=== PATIENT | female | born 1960 | race Caucasian/White ===

== ENCOUNTER 2017-06-10 06:26 | Inpatient (IN) | payer BC ==
[2017-05-12 08:19] VITALS: BMI 32.0
--- NOTE | 2017-05-12 09:10 | PAT Medication Instructions ---
Service Date May 12, 2017. Current Home Medication List Dermatological Products, Misc. (Kerasal Fungal Nail Renew), 1 DOSE TOP DAILY Famotidine (Pepcid), 20 MG PO DAILY PRN for Indigestion Ibuprofen (Advil), 400 MG PO QID PRN for Pain Lisinopril (Zestril), 10 MG PO QAM Prednisolone Acetate (Ophth) (Pred Forte 1% Oph), 1 DROPS OPR QAM Simvastatin (Zocor), 10 MG PO QPM Medication Instructions For Your Scheduled Surgery - Instructions per surgeon: Ibuprofen (Advil), 400 MG PO QID PRN for Pain - Hold the following medications 24 hours prior to surgery: Dermatological Products, Misc. (Kerasal Fungal Nail Renew), 1 DOSE TOP DAILY - Hold the following medications the morning of surgery: Lisinopril (Zestril), 10 MG PO QAM - Take the following medications the morning of surgery with a sip of water OTHERWISE NOTHING TO EAT OR DRINK AFTER MIDNIGHT: Famotidine (Pepcid), 20 MG PO DAILY PRN for Indigestion Prednisolone Acetate (Ophth) (Pred Forte 1% Oph), 1 DROPS OPR QAM - Take the following medications as scheduled the night before surgery: Simvastatin (Zocor), 10 MG PO QPM If you have any questions please call us at [phone] or [phone] or [phone]
[2017-05-12 09:33] LABS: BASO % 0.4 %; BASO ABS # 0.03 K/uL (0-0.2); COMPLETE YES; EOS % 3.1 %; HEMATOCRIT 41.8 % (37-47); IG% 0.4 %; LYMPH % 30.5 %; LYMPH ABS # 2.45 K/uL (1.2-3.4); MEAN CELL VOLUME 89.9 fL (80-100); MEAN CORPUSCULAR HEMOGLOBIN 29.5 pg (25-34); MEAN CORPUSCULAR HGB CONC 32.8 g/dl (32-36); MEAN PLATELET VOLUME 9.3 fL (7.4-10.4); MONO % 9.2 %; NEUT % 56.4 %; PLATELET COUNT 295 K/uL (130-400); RED BLOOD COUNT 4.65 M/uL (4.2-5.4); WHITE BLOOD COUNT 8.03 K/uL (4.8-10.8)
[2017-05-12 09:36] LABS: URINE APPEARANCE CLEAR (CLEAR); URINE BILIRUBIN NEG (NEG); URINE COLOR YELLOW; URINE EPITHELIAL CELL AUTO >30 /lpf (0-5); URINE NITRITE NEG (NEG); URINE PH 5.5 (4.5-7.5); URINE SPECIFIC GRAVITY 1.022 (1.000-1.030); UROBILINOGEN NEG (NEG); ZZUR CULT IF INDIC CLEAN CATCH NO
[2017-05-12 09:42] LABS: INR 0.9 (0.9-1.1); PARTIAL THROMBOPLASTIN RATIO 1.1; PROTHROMBIN TIME (PATIENT) 9.9 SECONDS (9.0-12.0)
[2017-05-12 09:51] LABS: MANUAL MICROSCOPIC REQUIRED? NO; REVIEW REQ? NO
[2017-05-12 09:54] LABS: ESTIMATED AVERAGE GLUCOSE 114 mg/dl; HA1C FLAG Normal (Normal)
[2017-05-12 11:10] LABS: CALCIUM 8.8 mg/dl (8.5-10.1); CREATININE 0.49 mg/dl (0.60-1.20); POTASSIUM 4.1 mmol/L (3.5-5.1)
--- NOTE | 2017-06-09 21:56 | HISTORY & PHYSICAL EXAMINATION ---
DATE OF ADMISSION: 06/10/2017 CHIEF COMPLAINT: Left knee pain. HISTORY OF PRESENT ILLNESS: This is a 57-year-old female patient of Dr. Meyer, complaining of chronic left knee pain, longstanding, now progressively getting worse. The patient has failed conservative treatment, including anti-inflammatories, intra-articular injections and the use of a brace as well as home exercise, physical therapy. The patient has increased pain with weightbearing activities and her pain does interfere with her activities of daily living. PAST MEDICAL HISTORY: Hypertension, hypercholesterolemia, syncope, not otherwise specified, and osteoarthritis. SOCIAL HISTORY: Nonsmoker, nondrinker. REVIEW OF SYSTEMS: The patient complains of chronic left knee pain; otherwise, denies any shortness of breath, chest pain, nausea, vomiting or joint complaints. FAMILY HISTORY: Noncontributory. PAST SURGICAL HISTORY: Will be provided on admission. MEDICATIONS: 1. Lisinopril 10 mg daily. 2. Simvastatin 10 mg daily. 3. Kerasal fungal nail renewal liquid, apply over the nail and surrounding skin as directed. 4. Prednisone 1% ophthalmic solution 1 drop in the left eye daily. 5. Pepcid 20 mg at bedtime. PHYSICAL EXAMINATION: GENERAL: A well-developed, well-nourished 57-year-old female, in no acute distress. She is alert and oriented x3 and pleasant. HEENT: Normocephalic, atraumatic. Extraocular motions are intact. Pupils are equal and reactive to light. HEART: Regular rate and rhythm, no murmurs appreciated. LUNGS: Clear. ABDOMEN: Soft and nontender; bowel sounds are present. EXTREMITIES: Left knee reveals crepitation with passive range of motion. She has joint line tenderness, limited range of motion. She has 4/5 strength with a mild effusion. NEUROLOGIC: Neurovascularly, she is intact in her left lower extremity. DIAGNOSES: Left knee end-stage osteoarthritis, hypertension, hypercholesterolemia. PLAN: The patient was advised of her diagnosis. Indications, risks, benefits, and postop course have all been reviewed. The patient wished to proceed with a left total knee arthroplasty. Necessary consent forms, preoperative testing and clearances will be obtained.
[~2017-06-10] VITALS: Ht 165.1 cm; Wt 87.7 kg
[2017-06-10] VITALS (9 sets, daily range): BP systolic 109–172; BP diastolic 69–95; PULSE 68–104; TEMP 36.3–36.8; O2SAT 93–100; Ht 165.1 cm; Wt 87.7 kg
[~2017-06-10 06:26] MED LIST: ACETAMINOPHEN 500 MG TAB PO SCH; CEFAZOLIN 2000 MG/60 ML D5W 60 ML IV SCH; CeleBREX 200 MG CAP PO SCH; DEXAMETHASONE 4 MG TAB PO SCH; FAMO20TA11 PO; FAMOTIDINE 20 MG TAB PO SCH; GABAPENTIN 300 MG CAP PO SCH; IBUP-1050 PO; LACTATED RINGER'S 1000ML 1,000 ML IV SCH; LACTATED RINGER'S 1000ML 500 ML IV ONE; LISI-461 PO; METOCLOPRAMIDE HCL 10 MG TAB PO SCH; PRED1SUS3 OPR; ROPIVACAINE 5MG/ML 30 ML 150 MG, BUPIVACAINE/EPINEPHR 0.5% MPF 30 ML, KETOROLAC TROMETH... INFIL SCH; SIMV10TA2 PO; [UNRECOGNIZED DRUG - CODE] TOP
[2017-06-10] MEDS ORDERED: BUPIVACAINE 0.5 % 5 MG/1 ML PF 10ML VIAL ONE (06:30)
[2017-06-10] MEDS: TRANEXAMIC ACID INJ 1,000 MG in SODIUM CHLORIDE 0.9% 100ML 100 ML IV SCH ×2 (06:30→09:03)
--- NOTE | 2017-06-10 07:26 | History & Physical Bridge Note ---
H&P Re-Evaluation Bridge Note: I have examined the patient, reviewed the History & Physical and in the interval since the performance of the History & Physical I have noted the following changes of clinical significance: No changes noted
[2017-06-10] MEDS ORDERED: FENTANYL CITRATE INJ 50 MCG/1 ML 2 ML VIAL ONE (08:07)
[2017-06-10] MEDS ORDERED: MIDAZOLAM HCL 1 MG/ML 2ML VIAL ONE ×2 (08:07→10:23)
[2017-06-10] MEDS ORDERED: BACITRACIN 50000 UNIT VIAL ONE (09:02)
[2017-06-10] MEDS ORDERED: ORTHO JOINT ANESTHETIC ONE (09:02)
[2017-06-10] MEDS ORDERED: POVIDONE-IODINE OP SOLN 30 ML BTL ONE (09:02)
[2017-06-10] MEDS ORDERED: FENTANYL CITRATE INJ 50 MCG/1 ML 2 ML VIAL IV PRN (09:15)
[2017-06-10] MEDS ORDERED: EpHEDrine SULFATE INJ 50 MG/ML AMP IV PRN (09:15)
[2017-06-10] MEDS ORDERED: ONDANSETRON INJ 2 MG/ML 2 ML VIAL IV PRN ×2 (09:15→11:45)
[2017-06-10] MEDS ORDERED: ATROPINE SULFATE 0.1 MG/ML 5ML SYR IV PRN (09:15)
[2017-06-10] MEDS ORDERED: PROPOFOL IV EMULSION 10 MG/ML 20 ML VIAL IV ONE ×2 (10:51)
[2017-06-10] MEDS ORDERED: ONDANSETRON INJ 2 MG/ML 2 ML VIAL ONE (10:51)
[2017-06-10] MEDS ORDERED: DEXAMETHASONE SOD INJ 4 MG/ML VIAL ONE (10:51)
--- NOTE | 2017-06-10 11:14 | [facility] Post Operative Brief Note ---
Immediate Operative Summary Operative Date Jun 10, 2017. Pre-Operative Diagnosis Left knee end stage osteoarthritis Post-Operative Diagnosis Left knee end stage osteoarthritis Procedure(s) Performed Left total knee arthroplasty Surgeon Dr. Packer Maintenance Electrician Surgeon(s) Ky Gay PA-C Estimated Blood Loss 5 cc Findings varus,grade 4 medial and patellofemoral and chronic acl tear Specimens A: Left knee bone and tissue Drains 2 hemovac Anesthesia spinal adductor block exparel Complication(s) None Disposition Recovery Room / PACU
[2017-06-10] MEDS ORDERED: MoRPHine SULFATE 2 MG/ML CARP IV PRN (11:45)
[2017-06-10] MEDS ORDERED: MAGNESIUM HYDROXIDE SUSP 30 ML UDC PO PRN (11:45)
[2017-06-10] MEDS ORDERED: BISACODYL 10 MG SUPP PR PRN (11:45)
[2017-06-10] MEDS ORDERED: ALUMINUM/MAGNESIUM/SIMETH (MAALOX MAX) 30 ML UDC PO PRN (11:45)
[2017-06-10] MEDS ORDERED: MoRPHine SULFATE 4 MG/ML 1 ML CARP\\VIAL IV PRN (11:45)
--- NOTE | 2017-06-10 12:09 | DIAGNOSTIC IMAGING REPORT ---
LEFT KNEE 1 OR 2 VIEWS ROUTINE CLINICAL HISTORY: 57 years-old Female presenting with degenerative disease of the left knee status post total knee arthroplasty. TECHNIQUE: Frontal and lateral views of the left knee were obtained. COMPARISON: None. FINDINGS: Total left knee arthroplasty with patellar resurfacing. Surgical drain and overlying skin kailash noted. Soft tissue emphysema. No acute fracture or malalignment. No hardware complication is apparent. Atherosclerosis. IMPRESSION: Expected postsurgical changes status post total left knee arthroplasty with patellar resurfacing. Electronically signed by: Roscoe Dietrich M.D. 06/10/2017 12:08 PM Dictated Date/Time: 06/10/2017 12:07 PM
--- NOTE | 2017-06-10 12:27 | Anesthesiology Progress Note ---
Anesthesia Post Op Note Date & Time Jun 10, 2017 at 12:27 Vital Signs Pain Intensity: 0 Vital Signs Past 12 Hours Date Time Temp Pulse Resp B/P (MAP) Pulse Ox O2 Delivery O2 Flow Rate FiO2 06/10/17 12:15 36.4 79 16 134/87 99 Nasal Cannula 2 06/10/17 12:05 77 16 120/84 99 Nasal Cannula 2 06/10/17 11:55 77 16 105/76 97 Mask 10 06/10/17 11:45 75 16 115/81 100 Mask 10 06/10/17 11:37 36.6 87 16 114/66 100 Mask 10 06/10/17 06:44 36.8 104 20 172/95 97 Room Air Notes Mental Status: alert / awake / arousable, participated in evaluation Pt Amnestic to Procedure: Yes Nausea / Vomiting: adequately controlled Pain: adequately controlled Airway Patency, RR, SpO2: stable & adequate BP & HR: stable & adequate Hydration State: stable & adequate Neuraxial Anesthesia: was administered, sensory block is resolving Anesthetic Complications: no major complications apparent
[2017-06-10] MEDS: ACETAMINOPHEN 500 MG TAB PO SCH ×2 (14:18→21:09)
[2017-06-10] MEDS: D5W AND 1/2NSS + 20MEQ KCL 1,000 ML IV SCH ×2 (14:18→23:51)
--- NOTE | 2017-06-10 15:14 | Medical Consult ---
Consultation Date of Consultation: Jun 10, 2017. Attending Physician: Meir Packer M.D. Reason for Consultation: Post-op medical management History of Present Illness This is a 57yo Female with a PMH of HTN, HLD and OA of multiple joints who is POD#0 s/p Left TKA with Dr. Packer. Patient has longstanding, chronic L knee pain that has failed conservative treatment. Is doing well post-operatively. Denies any pain in L knee. Denies any lightheadedness, CP, dyspnea, SOB, nausea/ vomiting, calf pain or weakness. Past Medical/Surgical History Medical Problems: (1) HLD (hyperlipidemia) Status: Chronic (2) HTN (hypertension) Status: Chronic (3) Osteoarthritis Status: Chronic Social History Smoking Status: Former Smoker Allergies Coded Allergies: Hylan G-F 20 (Verified Allergy, Unknown, SEVERE SWELLING OF EXTREMITY, ) Home Medications Reported Home Medications Medications Dose Route/Sig Max Daily Dose Days Date Category Advil (Ibuprofen) 200 Mg Tab 400 Mg PO QID PRN 05/12/17 Reported Pepcid (Famotidine) 20 Mg Tab 20 Mg PO DAILY PRN 05/12/17 Reported Pred Forte 1% Oph (Prednisolone Acetate (Ophth)) 1 % Elizabeth 1 Drops OPR QAM 05/12/17 Reported Kerasal Fungal Nail Renew (Dermatological Products, Misc.) 1 Liq Liq 1 Dose TOP DAILY 05/12/17 Reported Zocor (Simvastatin) 10 Mg Tab 10 Mg PO QPM 05/12/17 Reported Zestril (Lisinopril) 10 Mg Tab 10 Mg PO QAM 05/12/17 Reported Current Inpatient Medications Current Inpatient Medications Medications (Trade) Dose Ordered Sig/Juancarlos Route Start Time Stop Time Status Last Admin Dose Admin Cefazolin Sodium 60 ml @ 100 mls/hr PREOP IV 06/10/17 06:00 06/10/17 18:00 06/10/17 09:33 100 MLS/HR Acetaminophen (Tylenol Tab) 1,000 mg PREOP PO 06/10/17 06:00 06/10/17 18:00 06/10/17 07:22 1,000 MG Celecoxib (CeleBREX CAP) 200 mg PREOP PO 06/10/17 06:00 06/10/17 18:00 8/16/17 07:22 200 MG Dexamethasone (Decadron Tab) 8 mg PREOP PO 06/10/17 06:00 06/10/17 18:00 06/10/17 07:22 8 MG Famotidine (Pepcid Tab) 20 mg PREOP PO 06/10/17 06:00 06/10/17 18:00 06/10/17 07:22 20 MG Gabapentin (Neurontin Cap) 600 mg PREOP PO 06/10/17 06:00 06/10/17 18:00 06/10/17 07:21 600 MG Metoclopramide HCl (Reglan Tab) 10 mg PREOP PO 06/10/17 06:00 06/10/17 18:00 06/10/17 07:21 10 MG Tranexamic Acid 1000 mg/Sodium Chloride 110 ml @ 660 mls/hr TODAY@06,0630 IV 06/10/17 06:00 06/10/17 18:00 06/10/17 06:30 660 MLS/HR Lactated Ringer's 1,000 ml @ 60 mls/hr [id number] IV 06/10/17 06:00 06/10/17 22:39 Lactated Ringer's 1,000 ml @ 15 mls/hr Q24H IV 06/10/17 06:00 06/11/17 05:59 06/10/17 07:20 15 MLS/HR Lisinopril (Zestril Tab) 10 mg QAM PO 06/11/17 09:00 07/11/17 08:59 Prednisolone Acetate (Pred Forte 1% Oph Susp) 1 drops QAM OPR 06/11/17 09:00 07/11/17 08:59 Simvastatin (Zocor Tab) 10 mg QPM PO 06/10/17 21:00 07/10/17 20:59 Morphine Sulfate (MoRPHine SULFATE INJ) 2 mg Q4HWA PRN IV 06/10/17 11:45 06/24/17 11:44 Morphine Sulfate (MoRPHine SULFATE INJ) 4 mg Q4HWA PRN IV 06/10/17 11:45 06/24/17 11:44 Potassium Chloride/Dextrose/ Sod Cl 1,000 ml @ 100 mls/hr Q10H IV 06/10/17 14:00 06/11/17 13:59 06/10/17 14:18 100 MLS/HR Cefazolin Sodium 2000 mg/Dextrose 60 ml @ 100 mls/hr Q8H IV 06/10/17 18:00 06/11/17 02:35 Oxycodone HCl (Roxicodone Immediate Rel Tab) 1 TABLET FOR PAIN RATING... Q4H PRN PO 06/10/17 11:45 06/24/17 11:44 Oxycodone HCl (Oxycontin Tab) 10 mg Q12 PO 06/10/17 21:00 06/24/17 20:59 Acetaminophen (Tylenol Tab) 1,000 mg Q8 PO 06/10/17 14:00 07/10/17 13:59 06/10/17 14:18 1,000 MG Magnesium Hydroxide (Milk Of Magnesia Susp) 30 ml Q6H PRN PO 06/10/17 11:45 07/10/17 11:44 Bisacodyl (Dulcolax Supp) 10 mg DAILY PRN SC 06/10/17 11:45 07/10/17 11:44 Senna (Senokot Tab) 17.2 mg HS PO 06/10/17 21:00 07/10/17 20:59 Docusate Sodium (coLACE CAP) 100 mg BID PO 06/10/17 21:00 07/10/17 20:59 Al Hydrox/Mg Hydrox/Simethicone (Maalox Max Susp) 15 ml Q4H PRN PO 06/10/17 11:45 07/10/17 11:44 Multivitamins (Multivitamin Tab) 1 tab QAM PO 06/11/17 09:00 07/11/17 08:59 Ondansetron HCl (Zofran Inj) 4 mg Q6H PRN IV 06/10/17 11:45 07/10/17 11:44 Ferrous Gluconate (Ferrous Gluconate Tab) 324 mg TIDM PO 06/10/17 17:45 07/10/17 17:44 Pantoprazole Sodium (Protonix Tab) 40 mg QAM PO 06/11/17 09:00 07/11/17 08:59 Tramadol HCl (Ultram Tab) 1 tablet for pain rating... Q4H PRN PO 06/10/17 11:45 07/10/17 11:44 Aspirin (Ecotrin Tab) 81 mg BID PO 06/10/17 21:00 07/10/17 20:59 Review of Systems Ten systems reviewed and negative except as noted in the HPI. Physical Exam Date Time Temp Pulse Resp B/P (MAP) Pulse Ox O2 Delivery O2 Flow Rate FiO2 06/10/17 14:20 77 16 117/75 (89) 100 Nasal Cannula 2.0 06/10/17 13:25 81 16 114/73 (87) 99 Nasal Cannula 2.0 06/10/17 12:55 36.5 77 16 119/78 (92) 100 Nasal Cannula 2.0 06/10/17 12:25 36.5 71 16 109/74 (86) 98 Nasal Cannula 2.0 06/10/17 12:25 98 Nasal Cannula 2.0 06/10/17 12:25 Nasal Cannula 2.0 06/10/17 12:15 36.4 79 16 134/87 99 Nasal Cannula 2 06/10/17 12:05 77 16 120/84 99 Nasal Cannula 2 06/10/17 11:55 77 16 105/76 97 Mask 10 06/10/17 11:45 75 16 115/81 100 Mask 10 06/10/17 11:37 36.6 87 16 114/66 100 Mask 10 06/10/17 06:44 36.8 104 20 172/95 97 Room Air General Appearance: WD/WN, no apparent distress Head: normocephalic, atraumatic Eyes: normal inspection, sclerae normal ENT: hearing grossly normal Neck: supple, no adenopathy, thyroid normal, trachea midline Respiratory/Chest: chest non-tender, lungs clear, normal breath sounds, no respiratory distress, no accessory muscle use Cardiovascular: regular rate, rhythm, no murmur Abdomen/GI: normal bowel sounds, non tender, soft, no organomegaly Back: normal inspection Extremities/Musculoskelatal: normal inspection (L knee with dressing in place. Clean, dry, hemovac drain in place with minimal output. R LE with SCD in place.) , no calf tenderness, normal capillary refill, no pedal edema Neurologic/Psych: no motor/sensory deficits, alert, normal mood/affect, oriented x 3 Skin: normal color, warm/dry, no rash Assessment & Plan This is a 57yo Female with a PMH of HTN, HLD and OA of multiple joints who is POD#0 s/p Left TKA with Dr. Packer. POD#0 S/p Left Total Knee Replacement: -Performed by Dr. Packer -Pt is doing well post-operatively -Per ortho for pain control, wound care, anticoagulation and activities -Monitor H&H, continue incentive spirometry, PT/OT when appropriate HTN: -Patient normotensive post-operatively -Continue monitoring -Continue Lisinopril 10mg daily HLD: -Continue simvastatin 10mg daily H/o Syncope: -Per chart review -Discussed with patient, who stated that she feels "queasy" with medical discussion, the sight of blood, etc -Endorses near-syncopal events recently because of this, but no full syncope -Denies any previous episodes of orthostatic hypotension DVT Ppx: SCDs Code status: FULL Dispo: Per ortho Thank you for this consultation. We will follow the patient with you during their hospital stay. You can reach a member of the [facility] Hospitalist Team 18/05 via pager @ [phone]. ADDENDUM: Saw and examined the patient in room 316 Doing well, no problems/issues to note; no pain Eating, no nausea/vomiting, no fevers/chills Monitor labs, PT/OT weight bearing status as per ortho continue Lisinopril for blood pressure
[2017-06-10] MEDS: FERROUS GLUCONATE 324 MG TAB PO SCH (17:56)
[2017-06-10] MEDS: CEFAZOLIN IV 2,000 MG in DEXTROSE 5% 50ML 50 ML IV SCH (17:59)
[2017-06-10] MEDS: OXYCODONE HCL IR 5 MG TAB (IMMEDIATE RELEASE) PO PRN (18:36)
[2017-06-10] MEDS: OXYCODONE HCL 10 MG TABCR (OXYCONTIN) PO SCH (21:07)
[2017-06-10] MEDS: DOCUSATE SODIUM 100 MG CAP PO SCH (21:08)
[2017-06-10] MEDS: SENNA 8.6 MG TAB PO SCH (21:08)
[2017-06-10] MEDS: SIMVASTATIN 10 MG TAB PO SCH (21:08)
[2017-06-10] MEDS: ASPIRIN 81 MG ECTAB PO SCH (21:08)
[2017-06-11] VITALS (7 sets, daily range): BP systolic 98–136; BP diastolic 60–82; PULSE 68–75; TEMP 36.3–36.7; O2SAT 94–98
--- NOTE | 2017-06-11 00:17 | OPERATIVE REPORT ---
DATE OF OPERATION: 06/10/2017 INDICATION FOR PROCEDURE: A 57-year-old female who presents with chronic bilateral knee osteoarthritis. She has a varus knee, [id number] medial compartment, but has tricompartmental DJD. PREOPERATIVE DIAGNOSIS: End-stage osteoarthritis, left knee. POSTOPERATIVE DIAGNOSIS: Same. PROCEDURE: Left total knee arthroplasty. SURGEON: Dr. Packer. SENIOR PROJECT ACCOUNTANT: ALANIS Gonzales. ANESTHESIA: Spinal adductor nerve block and Orthomix. OPERATIVE PROCEDURE: The patient was taken to the operating room, anesthetized under anesthesia as dictated. She was placed supine on the operating room table. Pneumatic tourniquet was placed on left upper thigh. Left lower extremity was prepped and draped in sterile fashion. Exam demonstrated that she did not have any pseudolaxity, she had a varus knee. She had 0-125 degrees range of motion. Pneumatic tourniquet was placed about her moderately obese upper left thigh. The left lower extremity was prepped and draped in sterile fashion using ChloraPrep. The leg was elevated, exsanguinated with Esmarch bandage. Pneumatic tourniquet was raised to 300 mmHg. An anterior incision was made across the left knee. Skin was incised sharply. Subcutaneous flaps were elevated. Incision was made through medial retinaculum and extended up into the mid third of the quadriceps tendon, extending down to the medial tibial tubercle. Intraarticular findings demonstrate some tricompartmental DJD. She had tricompartmental osteophytes. Medial compartment bone on bone. She had a chronic ACL tear. She had notch osteophytes, closing the notch. She did have one area of grade 4 DJD in the trochlear patellofemoral joint and on the patella as well. The [employer] Journey 2.0 total knee arthroplasty system was used with [employer], [employer] MRI templating, templated for a 5 femur and 3 tibia. To expose the knee, the infrapatellar fat pad was excised. Lateral synovial bands were released. The fat pad over the anterior femur was resected. The meniscal remnants were resected. The posterior cruciate ligament was resected. The femur was exposed with retractors. The custom femoral cutting block was pinned in position. Distal femoral cut was made. Then we extended the knee and we were able to do a subperiosteal peel lateral release around the patella, measured the patella width. The width was reproduced using a freehand cut technique and a 32 mm patella component. The drill holes for the patella were made and the excess lateral facet was beveled off to prevent any impingement. Then the femur was re-exposed with retractors. The 5-in-1 cutting block for the Journey 2.0 knee was placed in position. The anterior, posterior and chamfer cuts were made. The tibia was subluxed and the custom tibial cutting block was pinned in position and the proximal tibial cut was made with the oscillating saw. Then we assessed ligamentous balance. We had to do some releases around the medial tibial plateau and pie-crust the MCL to balance the ligaments. At this time, the tibia was re-exposed and the 3 tibial baseplate trial was externally rotated in line with the tibial tubercle, pinned in position. The punch for the stem was used. Then the 5 femoral trial was inserted and centered and then the notch cutting devices were used and the collet was placed. A 12 poly insert gave balanced ligaments through full range of motion and patella had some slight liftoff laterally, so we went ahead and did a lateral release, leaving the synovium intact. Patella then tracked centrally completely. Trials were removed. The Orthomix anesthetic cocktail was injected per protocol. The knee was copiously irrigated with pulsatile lavage antibiotic solution with bacitracin. The final components were cemented the Simplex G cement. Final components were the 5 Oxinium Le[employer]hew Journey posterior stabilized left femoral component, the 3 primary tibia component, the 12 mm posterior stabilized poly high flex insert and then the 32 mm patella. While the cement was curing, we used the Betadine soak per protocol. Then we copiously irrigated the knee with pulsatile lavage antibiotic solution and bacitracin. Brought 2 drains out laterally. Closed the quadriceps tendon and medial retinaculum with [id number] #1 Vicryl sutures. The subcutaneous tissues closed with interrupted 2-0 Vicryl, skin was closed with kailash. Sterile dressings applied and the patient tolerated the procedure well. ALANIS Gonzales was my blood donor unit assistant, functioned as blood donor unit assistant for the entire procedure. He assisted in soft tissue retraction, instrument management and performed the fascial, subcutaneous and skin closure and will participate in the postoperative care of the patient. I attest to the content of the Intraoperative Record and any orders documented therein. Any exception s are noted below.
[2017-06-11] MEDS: CEFAZOLIN IV 2,000 MG in DEXTROSE 5% 50ML 50 ML IV SCH (01:39)
[2017-06-11] MEDS: ACETAMINOPHEN 500 MG TAB PO SCH ×3 (05:33→21:48)
[2017-06-11 06:03] LABS: HEMATOCRIT 37.1 % (37-47); MEAN CELL VOLUME 87.3 fL (80-100); MEAN CORPUSCULAR HEMOGLOBIN 28.9 pg (25-34); MEAN CORPUSCULAR HGB CONC 33.2 g/dl (32-36); MEAN PLATELET VOLUME 9.1 fL (7.4-10.4); PLATELET COUNT 294 K/uL (130-400); RED BLOOD COUNT 4.25 M/uL (4.2-5.4); WHITE BLOOD COUNT 19.58 K/uL (4.8-10.8)
[2017-06-11 06:39] LABS: CALCIUM 8.5 mg/dl (8.5-10.1); CREATININE 0.54 mg/dl (0.60-1.20); POTASSIUM 4.2 mmol/L (3.5-5.1)
[2017-06-11] MEDS: FERROUS GLUCONATE 324 MG TAB PO SCH ×3 (08:00→17:49)
[2017-06-11] MEDS: OXYCODONE HCL IR 5 MG TAB (IMMEDIATE RELEASE) PO PRN ×3 (08:00→19:45)
[2017-06-11] MEDS: MULTIVITAMIN TAB PO SCH (08:32)
[2017-06-11] MEDS: LISINOPRIL 10 MG TAB PO SCH (08:32)
[2017-06-11] MEDS: DOCUSATE SODIUM 100 MG CAP PO SCH ×2 (08:32→20:50)
[2017-06-11] MEDS: ASPIRIN 81 MG ECTAB PO SCH ×2 (08:32→20:50)
[2017-06-11] MEDS: PANTOprazole SOD 40 MG TAB PO SCH (08:32)
[2017-06-11] MEDS: PrednisoLONE ACET 1% OP SUSP 5 ML BTL OPR SCH (08:33)
[2017-06-11] MEDS: OXYCODONE HCL 10 MG TABCR (OXYCONTIN) PO SCH ×3 (08:34→23:27)
[2017-06-11] MEDS: D5W AND 1/2NSS + 20MEQ KCL 1,000 ML IV SCH (10:11)
--- NOTE | 2017-06-11 10:17 | Anesthesiology Progress Note ---
Anesthesia Post Op Note Date & Time Jun 11, 2017 at 10:16 Vital Signs Pain Intensity: 6.0 Vital Signs Past 12 Hours Date Time Temp Pulse Resp B/P (MAP) Pulse Ox O2 Delivery O2 Flow Rate FiO2 06/11/17 08:57 98 Room Air 06/11/17 07:58 36.3 70 18 120/62 (81) 98 Room Air 06/11/17 07:16 Room Air 06/11/17 04:22 36.7 71 16 98/60 (73) 97 Room Air 06/10/17 22:53 36.4 68 16 115/69 (84) 93 Room Air Notes Mental Status: alert / awake / arousable, participated in evaluation Pt Amnestic to Procedure: Yes Nausea / Vomiting: adequately controlled Pain: adequately controlled Airway Patency, RR, SpO2: stable & adequate BP & HR: stable & adequate Hydration State: stable & adequate Neuraxial Anesthesia: sensory block resolved Anesthetic Complications: no major complications apparent
--- NOTE | 2017-06-11 10:22 | Orthopedic Progress Note ---
Orthopedic Progress Note Date of Service Jun 11, 2017. Subjective Post OP Day: 1 Reports: feeling well, pain controlled w PO medications, Denies: complaints Objective calves soft nontender, N/V intact, dressing C/D/I, A&O x3, toes mobile, hemovac drainage (175ml latest shift) Date Time Temp Pulse Resp B/P (MAP) Pulse Ox O2 Delivery O2 Flow Rate FiO2 06/11/17 08:57 98 Room Air 06/11/17 07:58 36.3 70 18 120/62 (81) 98 Room Air 06/11/17 07:16 Room Air 06/11/17 04:22 36.7 71 16 98/60 (73) 97 Room Air 06/10/17 22:53 36.4 68 16 115/69 (84) 93 Room Air 06/10/17 19:30 Room Air 06/10/17 19:18 36.3 84 18 127/74 (91) 93 Room Air 06/10/17 17:40 94 Room Air 06/10/17 15:33 36.5 71 18 111/70 (84) 97 Nasal Cannula 3.0 06/10/17 14:20 77 16 117/75 (89) 100 Nasal Cannula 2.0 06/10/17 13:25 81 16 114/73 (87) 99 Nasal Cannula 2.0 06/10/17 12:55 36.5 77 16 119/78 (92) 100 Nasal Cannula 2.0 06/10/17 12:25 36.5 71 16 109/74 (86) 98 Nasal Cannula 2.0 06/10/17 12:25 98 Nasal Cannula 2.0 06/10/17 12:25 Nasal Cannula 2.0 06/10/17 12:15 36.4 79 16 134/87 99 Nasal Cannula 2 06/10/17 12:05 77 16 120/84 99 Nasal Cannula 2 06/10/17 11:55 77 16 105/76 97 Mask 10 06/10/17 11:45 75 16 115/81 100 Mask 10 06/10/17 11:37 36.6 87 16 114/66 100 Mask 10 Laboratory Results 24 Hours: Test 06/11/17 05:23 Hematocrit 37.1 % Hemoglobin 12.3 g/dL Assessment & Plan Assessment: POD 1 s/p Left TKA Plan: PT/OT Planning for OPPT Inhouse Planning Pain Management: Oxycontin, Ultram, Morphine, PO Tylenol, Oxy IR DVT Prophylaxis: TEDs, SCDs, ASA Discharge Planning Discharge Planning: home with oppt Pain Management: Oxycontin, PO Tylenol, Oxy IR DVT Prophylaxis: TEDs, ASA Therapy: Physical Therapy
--- NOTE | 2017-06-11 12:37 | Progress Note ---
Subjective Date of Service: Jun 11, 2017. Subjective Pt evaluation today including: conversation w/ patient, physical exam, lab review, review of studies, review of inpatient medication list Saw/examined the patient in room 316 No problems/issues to note Pain controlled Good PO intake no BM as of yet Review of Systems Constitutional: No fever, No chills Respiratory: No cough, No sputum, No shortness of breath Cardiac: No chest pain Abdomen: No pain, No nausea, No vomiting, No diarrhea Musculoskeletal: + joint pain (controlled with medications) Medications Current Inpatient Medications Medications (Trade) Dose Ordered Sig/Juancarlos Route Start Time Stop Time Status Last Admin Dose Admin Lisinopril (Zestril Tab) 10 mg QAM PO 06/11/17 09:00 07/11/17 08:59 06/11/17 08:32 10 MG Prednisolone Acetate (Pred Forte 1% Oph Susp) 1 drops QAM OPR 06/11/17 09:00 07/11/17 08:59 06/11/17 08:33 1 DROPS Simvastatin (Zocor Tab) 10 mg QPM PO 06/10/17 21:00 07/10/17 20:59 06/10/17 21:08 10 MG Morphine Sulfate (MoRPHine SULFATE INJ) 2 mg Q4HWA PRN IV 06/10/17 11:45 06/24/17 11:44 Morphine Sulfate (MoRPHine SULFATE INJ) 4 mg Q4HWA PRN IV 06/10/17 11:45 06/24/17 11:44 Potassium Chloride/Dextrose/ Sod Cl 1,000 ml @ 100 mls/hr Q10H IV 06/10/17 14:00 06/11/17 13:59 06/11/17 10:11 100 MLS/HR Oxycodone HCl (Roxicodone Immediate Rel Tab) 1 TABLET FOR PAIN RATING... Q4H PRN PO 06/10/17 11:45 06/24/17 11:44 06/11/17 08:00 5 MG Oxycodone HCl (Oxycontin Tab) 10 mg Q12 PO 06/10/17 21:00 06/24/17 20:59 06/11/17 08:34 10 MG Acetaminophen (Tylenol Tab) 1,000 mg Q8 PO 06/10/17 14:00 07/10/17 13:59 06/11/17 05:33 1,000 MG Magnesium Hydroxide (Milk Of Magnesia Susp) 30 ml Q6H PRN PO 06/10/17 11:45 07/10/17 11:44 Bisacodyl (Dulcolax Supp) 10 mg DAILY PRN ME 06/10/17 11:45 07/10/17 11:44 Senna (Senokot Tab) 17.2 mg HS PO 06/10/17 21:00 07/10/17 20:59 06/10/17 21:08 17.2 MG Docusate Sodium (coLACE CAP) 100 mg BID PO 06/10/17 21:00 07/10/17 20:59 06/11/17 08:32 100 MG Al Hydrox/Mg Hydrox/Simethicone (Maalox Max Susp) 15 ml Q4H PRN PO 06/10/17 11:45 07/10/17 11:44 Multivitamins (Multivitamin Tab) 1 tab QAM PO 06/11/17 09:00 07/11/17 08:59 06/11/17 08:32 1 TAB Ondansetron HCl (Zofran Inj) 4 mg Q6H PRN IV 06/10/17 11:45 07/10/17 11:44 Ferrous Gluconate (Ferrous Gluconate Tab) 324 mg TIDM PO 06/10/17 17:45 07/10/17 17:44 06/11/17 12:12 324 MG Pantoprazole Sodium (Protonix Tab) 40 mg QAM PO 06/11/17 09:00 07/11/17 08:59 06/11/17 08:32 40 MG Tramadol HCl (Ultram Tab) 1 tablet for pain rating... Q4H PRN PO 06/10/17 11:45 07/10/17 11:44 Aspirin (Ecotrin Tab) 81 mg BID PO 06/10/17 21:00 07/10/17 20:59 06/11/17 08:32 81 MG Objective Vital Signs Date Time Temp Pulse Resp B/P (MAP) Pulse Ox O2 Delivery O2 Flow Rate FiO2 06/11/17 11:34 36.3 70 18 136/82 (100) 98 Room Air 06/11/17 08:57 98 Room Air 06/11/17 07:58 36.3 70 18 120/62 (81) 98 Room Air 06/11/17 07:16 Room Air 06/11/17 04:22 36.7 71 16 98/60 (73) 97 Room Air 06/10/17 22:53 36.4 68 16 115/69 (84) 93 Room Air 06/10/17 19:30 Room Air 06/10/17 19:18 36.3 84 18 127/74 (91) 93 Room Air 06/10/17 17:40 94 Room Air 06/10/17 15:33 36.5 71 18 111/70 (84) 97 Nasal Cannula 3.0 06/10/17 14:20 77 16 117/75 (89) 100 Nasal Cannula 2.0 06/10/17 13:25 81 16 114/73 (87) 99 Nasal Cannula 2.0 06/10/17 12:55 36.5 77 16 119/78 (92) 100 Nasal Cannula 2.0 Physical Exam General Appearance: no apparent distress Respiratory/Chest: lungs clear, normal breath sounds, no respiratory distress, no accessory muscle use Cardiovascular: regular rate, rhythm, no edema, no murmur Extremities: + pertinent finding (wound vac in place) Laboratory Results Last 24 Hours Test 06/11/17 05:23 White Blood Count 19.58 K/uL Red Blood Count 4.25 M/uL Hemoglobin 12.3 g/dL Hematocrit 37.1 % Mean Corpuscular Volume 87.3 fL Mean Corpuscular Hemoglobin 28.9 pg Mean Corpuscular Hemoglobin Concent 33.2 g/dl RDW Standard Deviation 45.0 fL RDW Coefficient of Variation 14.0 % Platelet Count 294 K/uL Mean Platelet Volume 9.1 fL Sodium Level 141 mmol/L Potassium Level 4.2 mmol/L Chloride Level 110 mmol/L Carbon Dioxide Level 27 mmol/L Anion Gap 4.0 mmol/L Blood Urea Nitrogen 11 mg/dl Creatinine 0.54 mg/dl Est Creatinine Clear Calc Drug Dose 124.2 ml/min Estimated GFR () 120.6 Estimated GFR (Non- 104.0 BUN/Creatinine Ratio 20.0 Random Glucose 137 mg/dl Calcium Level 8.5 mg/dl Assessment and Plan This is a 57yo Female with a PMH of HTN, HLD and OA of multiple joints who is POD#0 s/p Left TKA with Dr. Packer. POD#0 S/p Left Total Knee Replacement: 06/11 doing well, pain controlled continue current regimen monitor labs expected leukocytosis - perioperative steroid use -Performed by Dr. Packer -Pt is doing well post-operatively -Per ortho for pain control, wound care, anticoagulation and activities -Monitor H&H, continue incentive spirometry, PT/OT when appropriate HTN: - controlled -Patient normotensive post-operatively -Continue monitoring -Continue Lisinopril 10mg daily HLD: -Continue simvastatin 10mg daily H/o Syncope: -Per chart review -Discussed with patient, who stated that she feels "queasy" with medical discussion, the sight of blood, etc -Endorses near-syncopal events recently because of this, but no full syncope -Denies any previous episodes of orthostatic hypotension DVT Ppx: SCDs Code status: FULL Dispo: Per ortho Thank you for this consultation. We will follow the patient with you during their hospital stay. You can reach a member of the [facility]05 via pager @ .
[2017-06-11] MEDS: TRAMADOL HCL 50 MG TAB PO PRN (20:27)
[2017-06-11] MEDS: SIMVASTATIN 10 MG TAB PO SCH (20:50)
[2017-06-11] MEDS: SENNA 8.6 MG TAB PO SCH (20:51)
[2017-06-12] MEDS: ACETAMINOPHEN 500 MG TAB PO SCH ×2 (05:48→14:01)
[2017-06-12] MEDS: TRAMADOL HCL 50 MG TAB PO PRN ×2 (05:48→14:01)
[2017-06-12 05:50] LABS: HEMATOCRIT 33.8 % (37-47); MEAN CELL VOLUME 88.7 fL (80-100); MEAN CORPUSCULAR HEMOGLOBIN 29.1 pg (25-34); MEAN CORPUSCULAR HGB CONC 32.8 g/dl (32-36); MEAN PLATELET VOLUME 8.9 fL (7.4-10.4); PLATELET COUNT 274 K/uL (130-400); RED BLOOD COUNT 3.81 M/uL (4.2-5.4); WHITE BLOOD COUNT 12.18 K/uL (4.8-10.8)
[2017-06-12 06:20] LABS: BUN/CREATININE RATIO 22.7 (10-20); CREATININE 0.51 mg/dl (0.60-1.20); POTASSIUM 4.3 mmol/L (3.5-5.1)
[2017-06-12 07:12] VITALS: BP 122/77; PULSE 71; TEMP 36.5; O2SAT 96
[2017-06-12] MEDS: OXYCODONE HCL IR 5 MG TAB (IMMEDIATE RELEASE) PO PRN (07:15)
[2017-06-12] MEDS ORDERED: SNK PO (07:35)
[2017-06-12] MEDS ORDERED: RXC5 PO (07:35)
[2017-06-12] MEDS ORDERED: ASPEC81 PO (07:35)
[2017-06-12] MEDS ORDERED: OXYSR10 PO (07:35)
[2017-06-12] MEDS: MULTIVITAMIN TAB PO SCH (08:37)
[2017-06-12] MEDS: DOCUSATE SODIUM 100 MG CAP PO SCH (08:37)
[2017-06-12] MEDS: PANTOprazole SOD 40 MG TAB PO SCH (08:37)
[2017-06-12] MEDS: FERROUS GLUCONATE 324 MG TAB PO SCH ×2 (08:37→12:47)
[2017-06-12] MEDS: LISINOPRIL 10 MG TAB PO SCH (08:37)
[2017-06-12] MEDS: ASPIRIN 81 MG ECTAB PO SCH (08:37)
[2017-06-12] MEDS: PrednisoLONE ACET 1% OP SUSP 5 ML BTL OPR SCH (08:38)
[2017-06-12] MEDS: OXYCODONE HCL 10 MG TABCR (OXYCONTIN) PO SCH (08:40)
--- NOTE | 2017-06-12 08:52 | Orthopedic Progress Note ---
Orthopedic Progress Note Date of Service Jun 12, 2017. Subjective Post OP Day: 2 Reports: feeling well, Denies: complaints Objective calves soft nontender, N/V intact, A&O x3, toes mobile Silverlon dressing window with moderate saturation but not leaking out of bandage. Date Time Temp Pulse Resp B/P (MAP) Pulse Ox O2 Delivery O2 Flow Rate FiO2 06/12/17 07:30 Room Air 06/12/17 07:12 36.5 71 19 122/77 (92) 96 Room Air 06/11/17 23:30 Room Air 06/11/17 23:15 36.3 68 16 108/71 (83) 96 Room Air 06/11/17 21:00 Room Air 06/11/17 15:49 36.4 75 17 115/70 (85) 94 Room Air 06/11/17 11:34 36.3 70 18 136/82 (100) 98 Room Air 06/11/17 08:57 98 Room Air Laboratory Results 24 Hours: Test 06/12/17 05:24 Hematocrit 33.8 % Hemoglobin 11.1 g/dL Assessment & Plan Assessment: POD 2 s/p Left TKA Pt seen by Dr Packer this AM Plan: PT/OT Planning for OPPT DC to home today Inhouse Planning Pain Management: Oxycontin, Ultram, Morphine, PO Tylenol, Oxy IR DVT Prophylaxis: TEDs, SCDs, ASA Discharge Planning Discharge Planning: home with oppt Pain Management: Oxycontin, PO Tylenol, Oxy IR DVT Prophylaxis: TEDs, ASA Therapy: Physical Therapy
--- NOTE | 2017-06-12 08:57 | Discharge Instructions ---
Discharge Instructions Date of Service Jun 12, 2017. Admission Reason for Admission: Left Knee Degenerative Joint Disease Discharge Discharge Diagnosis / Problem: Left KNee Djd Discharge Goals Goal(s): Decrease discomfort, Improve function, Increase independence Activity Recommendations Activity Limitations: per Instructions/Follow-up section Weightbearing Status: Left weightbearing (as tolerated) . Instructions / Follow-Up Instructions / Follow-Up ACTIVITY RECOMMENDATIONS: SELF CARE INSTRUCTIONS AFTER TOTAL KNEE REPLACEMENT A. You may need to continue a physical therapy program after discharge from the hospital. There are several options available to you. Your doctor will assist you in selecting the best one for you. 1. An out-patient facility 2 to 3 times a week for therapy or home therapy. 2. Continue working on all exercises taught to you in the hospital. Your goals should be to increase bending of your knee to 90 degrees and beyond and to fully straighten your knee. B. You may progress at your own pace from walking with a walker or crutches to a cane; then to no assistive devices. C. Make walking a part of your daily routine. Be up as much as comfortable with rest periods throughout the day. Rest with leg elevation is very important. Use the ice wrap frequently for the first 3-4 weeks. D. There are no restrictions on activities. You may ride in a car, shop, participate in commercial insurance underwriter and all social activities. E. Wear the long elastic stockings (MAISHA hose) 20 hours a day for 2 weeks after surgery. They can be removed several times a day for laundering and for a bath. F. You may shower, no tub baths until cleared by your doctor. SPECIAL CARE INSTRUCTIONS: VERY IMPORTANT TO READ AND REVIEW A. There are a few signs you need to watch for after you are home. Call [facility] if you notice any of the followin. Increased severe knee pain. Some pain is expected especially when you exercise. 2. Increased swelling in your leg or knee; pain or swelling of the calf muscle in either lower leg. 3. Any fluid drainage from the incision. 4. Shortness of breath or chest pain. B. Please call [facility] at if you have any concerns or questions about your operation or recovery. The doctor or his nurse will return your call promptly. C. You must take antibiotics before dental work, bladder, bowel or other surgery. Your doctor will provide you with a permanent care to carry describing this precaution. IMPORTANT: * REMEMBER TO TAKE ASPIRIN, 81 MG, TWICE DAILY FOR 4 WEEKS UNLESS OTHERWISE DIRECTED. THIS IS YOUR BLOOD THINNER. * HIGH RISK PATIENTS MAY BE PRESCRIBED A STRONGER BLOOD THINNER. THIS WILL BE PROVIDED AT DISCHARGE. * CALL IF INCREASED PAIN, REDNESS, DRAINAGE OR FEVER GREATER THAT 101. * WEAR MAISHA HOSE 20 HOURS PER DAY FOR 2 WEEKS. * Silverlon- This is a large adhesive bandage that contains silver ions. This helps your incision heal by fighting off bacteria and protecting it from the outside environment. You are permitted to shower with this dressing. This will remain on your incision for 7 days and then should be removed. Some visible blood or drainage through the dressing window is normal. If there is significant drainage or leaking noted before the 7 days notify your doctor's office immediately. Once removed, keep incision clean and dry. If there is any drainage or redness noted, please call your surgeon. . FOLLOW UP VISIT: If appointment is not already scheduled: Please call [facility] to make a follow-up appointment for 2 weeks after your surgery at . Current Hospital Diet Patient's current hospital diet: Regular Diet Discharge Diet Recommended Diet: Regular Diet Procedures Procedures Performed: Left total knee arthroplasty Pending Studies Studies pending at discharge: no Laboratory Results Hemoglobin A1c Test 05/12/17 08:50 Range/Units Estimated Average Glucose 114 mg/dl Hemoglobin A1c 5.6 4.5-5.6 % Medical Emergencies . Who to Call and When: Medical Emergencies: If at any time you feel your situation is an emergency, please call 911 immediately. . Non-Emergent Contact Non-Emergency issues call your: Surgeon Call Non-Emergent contact if: temperature is above 101.5, your pain is not controlled, your pain is worsening, wound has increased drainage, wound has increased redness . "Provider Documentation" section prepared by Ky Gay. . VTE Core Measure Inpt VTE Proph given/why not?: Other Anticoagulation, T.E.D. Stockings, SCD's [place] Drug Monitoring Program Search Results: patient reviewed within database, no issues identified
[2017-06-12 10:34] VITALS: BP 122/77; PULSE 71; TEMP 36.5; O2SAT 96
--- NOTE | 2017-06-12 11:13 | DISCHARGE SUMMARY ---
DATE OF DISCHARGE: 06/12/2017 DISCHARGE DIAGNOSIS: Degenerative joint disease left knee. SECONDARY DIAGNOSES: Hypertension, hypercholesterolemia, syncope, osteoarthritis. CONSULTS: Ashely Hidalgo PA-C/Dr. Saurav D.O. COMPLICATIONS: None. PROCEDURES: Left total knee arthroplasty performed by Dr. Packer on 06/10/2017. BRIEF HISTORY: As dictated in the history and physical. HOSPITAL SUMMARY: The patient admitted on the above date and had the above-noted surgery performed which she tolerated well. The first postoperative day, she was feeling well and pain was controlled. Calves were soft, nontender, neurovascularly intact. Dressings clean, dry and intact. Toes were mobile. Vital signs were stable. She is afebrile. Hemoglobin was 12.3 and she was started on physical therapy protocol and continued on DVT prophylaxis and pain management. By her second postoperative day, vital signs were stable. She was afebrile. Hemoglobin was 11.1. It was noted that her Silverlon dressing was slightly saturated and plans were for changing prior to discharge. She was progressing well otherwise and was remaining stable and it was felt she could be discharged to home on 06/12/2017 for plans with outpatient PT. For further review, please see chart. LAB AND X-RAY DATA: As per chart. DISCHARGE INSTRUCTIONS: The patient was discharged to home in satisfactory condition on 06/12/2017 with outpatient PT. DIET: Regular. ACTIVITY: Weightbearing as tolerated left lower extremity. Follow TK instruction sheets and special care instructions as noted. Follow up Dr. Packer in 2 weeks. The patient to call for appointment if one has not been made for you. DISCHARGE MEDICATIONS: Aspirin 81 mg p.o. b.i.d., OxyContin 10 mg p.o. q. 12 hours, oxycodone 5-10 mg p.o. q. 4 hours p.r.n., senna 17.2 mg p.o. at bedtime. Resume home meds as listed and stop taking ibuprofen.
== END 2017-06-12 16:59 | disposition home or self-care (01) | DRG 470 ==
LOC: C.ACU 06:26 → C.3E 07:00 → ENRESERV 12:07
PROVIDERS: ADMIT Orthopaedic Surgery Sports Medicine; ATTEND Orthopaedic Surgery Sports Medicine
PROC: 0SRD0J9 Replacement of Left Knee Joint with Synthetic Substitute, Cemented, Open Approach (ICD-10-PCS; principal; 2017-06-10 10:25)
DX: M17.12 Unilateral primary osteoarthritis, left knee (principal); I10 Essential (primary) hypertension; E78.5 Hyperlipidemia, unspecified; Z87.891 Personal history of nicotine dependence

== ENCOUNTER 2019-05-18 05:04 | Observation (INO) ==
--- NOTE | 2019-03-22 09:57 | Anesthesiology Consultation ---
Date of Service March 22, 2019 Assessment & Plan (1) Encounter for pre-operative examination: Chart Review Chart Review: Acceptable Risk for Surgery and Patient seen in Pre Admission Testing Teaching & Discussion Pre-Anesthesia Teaching/Discussion Notes: Instructed NPO after midnight before surgery,except medications with 15 cc of water. Medication instructions provided according to the PAT guidelines. History Surgery Operation Date: 05/18/19 07:00 Proposed Procedures p Right Total Knee Arthroplasty - Meir Packer MD Height/Weight Height: 5 ft 5 in Weight: 93.8 kg Allergies Allergy/AdvReac Type Severity Reaction Status Date / Time hylan G-F 20 Allergy Unknown SEVERE Verified 03/18/19 11:37 SWELLING Medications Home Medications Medication Instructions Recorded Confirmed Last Taken famotidine-Ca carb-mag hydrox 1 tab PO DAILY PRN 03/18/19 03/18/19 Unknown [Pepcid Complete] ibuprofen [Advil] 800 mg PO UD PRN 03/18/19 03/18/19 Unknown lisinopril 10 mg PO QAM 03/18/19 03/18/19 03/18/19 menthol [Ricola] 1.1 mg PO UD PRN 03/18/19 03/18/19 Unknown prednisolone acetate 1 drp OPHTHALMIC (EYE) DAILY 03/18/19 03/18/19 Unknown simvastatin 10 mg PO HS 03/18/19 03/18/19 03/17/19 Past Medical History Medical History Acid reflux OCCASIONAL Diverticulitis HX; 2011 Hyperlipidemia Hypertension IBS (irritable bowel syndrome) Obesity Exercise / Class Metabolic Activity II 4-5 Yardwork/Stairs/Walk up hill Past Surgical History Surgical History History of bilateral cataract extraction History of colonoscopy History of cornea transplant LEFT History of thoracentesis 2011= "FLUID DRAINED" FROM LUNG IN SETTING OF HOSPITALIZATION FOR DI VERTICULITIS/? IV REACTION= NO ISSUES SINCE History of total left knee replacement Past Anesthesia History No Hx of Anesthesia Complications and No Family Hx of Anesthesia Complications History of PONV No Hx of PONV and Hx of Motion Sickness (SINGLE EPISODE) Social History Smoking Status: Former smoker tobacco type: cigarettes Do You Dip or Chew Tobacco: No Smoking End Date: QUIT 1996 Hx Alcohol Use: Yes Alcohol type: hard liquor alcohol intake frequency: 0-2 drinks per day (2 SHOTS VODKA DRINK DAILY) Hx Substance Use: No substance use type: does not use Review of Systems Patient denies chest pain, shortness of breath, dyspnea on exertion, cough, wheezing, palpitations. Physical Exam Vital Signs VITALS BP 115/74 P 62 TEMP 97.7 SP02 97%RA RESP 20 PHYSICAL Full neck and c-spine range of motion. Full TMJ range of motion. TMD 2.5 finger breaths Mallampati Score 3 Dentition: intact, caps on sides Lungs: clear throughout to auscultation Cardiac: regular rate and rhythm, no murmurs noted Spine: normal Carotid arteries: negative bruit Extremities: no edema Testing Laboratory Results 03/22/19 10:19 03/22/19 10:19 03/22/19 03/22/19 03/22/19 10:19 10:19 10:19 PT 9.5 INR 0.9 APTT 24.9 Hemoglobin A1c 5.9 H Urine Color Urine Appearance Urine pH Ur Specific [place] Urine Protein Urine Glucose (UA) Urine Ketones Urine Nitrite Ur Leukocyte Esterase Blood Type A Positive Antibody Screen NEGATIVE 03/22/19 Unknown PT INR APTT Hemoglobin A1c Urine Color Yellow Urine Appearance Clear Urine pH 5.5 Ur Specific [place] 1.020 Urine Protein Negative Urine Glucose (UA) Negative Urine Ketones Negative Urine Nitrite Negative Ur Leukocyte Esterase Negative Blood Type Antibody Screen Electrocardiogram Date: 03/22/19 Findings: + SB @ (58) Chest X-Ray Date: 03/22/19 Findings: + NAD
--- NOTE | 2019-03-22 10:15 | PAT Medication Instructions ---
Medication Instructions Date of Service March 22, 2019 Home Medications famotidine-Ca carb-mag hydrox 1 tab PO DAILY PRN ibuprofen [Advil] 800 mg PO UD PRN lisinopril 10 mg PO QAM menthol [Ricola] 1.1 mg PO UD PRN prednisolone acetate 1 drp OPHTHALMIC (EYE) DAILY simvastatin 10 mg PO HS ASK your surgeon for instructions ibuprofen [Advil] 800 mg PO UD PRN DO NOT take the morning of surgery famotidine-Ca carb-mag hydrox 1 tab PO DAILY PRN lisinopril 10 mg PO QAM menthol [Ricola] 1.1 mg PO UD PRN Take morning of surgery With a small sip of water, OTHERWISE NOTHING TO EAT OR DRINK AFTER MIDNIGHT: prednisolone acetate 1 drp OPHTHALMIC (EYE) DAILY Take evening before surgery simvastatin 10 mg PO HS Other Notes If you have any questions please call us at [phone] or [phone] or [phone] or [phone]
--- NOTE | 2019-03-22 10:48 | XRay Report ---
XR chest Pre-admission PA/Lat CLINICAL HISTORY: Preoperative chest COMPARISON STUDY: No previous studies for comparison. FINDINGS: The cardiac and mediastinal contours are normal. There is no evidence of focal pulmonary co nsolidation. There is no evidence of failure. No pleural effusions are visualized.[ IMPRESSION: No active disease in the chest. Electronically signed by: Sixto Scott M.D. 03/22/2019 10:47 AM
[2019-03-22 11:45] LABS: Basophils # (auto) 0.02 K/uL (0-0.2); Basophils % (auto) 0.2 %; Eosinophils # (auto) 0.29 K/uL (0-0.5); Eosinophils % (auto) 3.1 %; Hematocrit (blood only) 42.2 % (37-47); Hemoglobin 14.2 g/dL (12.0-16.0); Immature Granulocytes # (auto) 0.04 K/uL (0.00-0.02); Immature Granulocytes % (auto) 0.4 %; Lymphocytes # (auto) 2.64 K/uL (1.2-3.4); Lymphocytes % (auto) 28.2 %; Mean Corpuscular Hgb Conc 33.6 g/dL (32-36); Mean Platelet Volume 10.1 fL (7.4-10.4); Monocytes # (auto) 0.73 K/uL (0.11-0.59); Monocytes % (auto) 7.8 %; Neutrophils # (auto) 5.64 K/uL (1.4-6.5); Neutrophils % (auto) 60.3 %; Platelet Count 302 K/uL (130-400); RDW Coefficient of Variation 15.5 % (11.5-14.5); RDW Standard Deviation 50.1 fL (36.4-46.3); Red Blood Count 4.85 M/uL (4.2-5.4); White Blood Count 9.36 K/uL (4.8-10.8)
[2019-03-22 11:51] LABS: Appearance Urine Clear (Clear); Bilirubin Urine Negative (Negative); Blood Urine Negative (Negative); Color Urine Yellow; Glucose Urine UA Negative (Negative); Ketones Urine Negative (Negative); Leukocyte Esterase Urine Negative (Negative); Nitrite Urine Negative (Negative); Protein Urine Negative (Negative); Urobilinogen Urine Negative (Negative); pH Urine 5.5 (4.5-7.5)
[2019-03-22 11:53] LABS: Albumin Level 3.4 gm/dl (3.4-5.0); BUN Creatinine Ratio 34.4 (10-20); Calcium 9.5 mg/dl (8.5-10.1); Creatinine Clr Calc Pharmacy 116.8 ml/min; Est GFR (African American) 116.1; Est GFR (Non-African American) 100.2; Potassium 4.2 mmol/L (3.5-5.1)
[2019-03-22 12:07] LABS: INR 0.9 (0.9-1.1); Partial Thromboplastin Ratio 0.9; Partial Thromboplastin Time 24.9 Seconds (21.0-31.0); Prothrombin Time 9.5 Seconds (9.0-12.0)
[2019-03-22 12:18] LABS: Estimated Average Glucose 123 mg/dl; Hemoglobin A1C 5.9 % (4.5-5.6)
--- NOTE | 2019-05-17 19:10 | History and Physical Report ---
DATE OF ADMISSION: 05/18/2019 CHIEF COMPLAINT: Chronic right knee pain and instability. HISTORY OF PRESENT ILLNESS: This is a 59-year-old female patient of Dr. Packer'rommel complaining of chronic right knee pain and instability, longstanding, now progressively getting worse. The patient has failed conservative treatment including intra-articular injections, anti-inflammatories, home exercise program and the use of a cane. The patient has increased pain with weightbearing activities and her pain does interfere with her activities of daily living. The patient has been diagnosed with end-stage osteoarthritis per clinical and radiographic exams and the patient wished to proceed with a right total knee arthroplasty. PAST MEDICAL HISTORY: Peripheral neuropathy, rheumatoid arthritis, osteoarthritis, sciatica, acid reflux. SOCIAL HISTORY: Nonsmoker, occasional drinker. PAST SURGICAL HISTORY: Left total knee replacement. Cornea transplant and cataract surgery. FAMILY HISTORY: Noncontributory. REVIEW OF SYSTEMS: Chronic right knee pain and instability. Otherwise, denies any shortness of breath, chest pain, nausea, vomiting or any other joint complaints. MEDICATIONS: 1. Lisinopril 10 mg daily. 2. Zocor 10 mg daily. 3. Prevacid 20 mg daily. 4. Eyedrop solution 1 drop every day into the left eye. ALLERGIES: No known drug allergies. PHYSICAL EXAMINATION: GENERAL: Well-developed, well-nourished 59-year-old female in no acute distress. She is alert and oriented x3 and pleasant. HEENT: Normocephalic, atraumatic. Extraocular motions are intact. Pupils are equal and reactive to light. HEART: Regular rate and rhythm, no murmurs. LUNGS: Clear. ABDOMEN: Soft, nontender, bowel sounds present. EXTREMITIES: Right knee range of motion of 0-135 with a varus deformity. She has medial joint line tenderness with crepitation on passive range of motion. She has a positive Alyssa's. NEUROLOGIC: Neurologically and neurovascularly, she is intact in her right lower extremity. DIAGNOSES: Right knee end-stage osteoarthritis, peripheral neuropathy, rheumatoid arthritis, osteoarthritis, sciatica, acid reflux, obesity. PLAN: The patient was advised of her diagnosis. Indications, risks, benefits, postop course have all been reviewed. The patient wished to proceed with a right total knee arthroplasty. Necessary consent forms, preoperative testing and clearances will be obtained.
[2019-05-18] MEDS ORDERED: GABAPENTIN 600 MG DOSE PO SCH (06:00)
[2019-05-18] MEDS ORDERED: ROPIVACAINE 0.5% HCL/PF 150 MG, BUPIVACAINE 0.5% MPF 30 ML, EPINEPHrine 30MG/30ML (OR U... INSTIL SCH (06:00)
[2019-05-18] MEDS ORDERED: TRANEXAMIC ACID 1,000 MG **IV Pre-op IV SCH (06:00)
[2019-05-18] MEDS ORDERED: dexAMETHasone 4 MG TAB PO SCH (06:00)
[2019-05-18] MEDS ORDERED: LR 500ML BOLUS, THEN 15ML/HR IV SCH (06:00)
[2019-05-18] MEDS ORDERED: FAMOTIDINE 20 MG TAB PO SCH (06:00)
[2019-05-18] MEDS ORDERED: ACETAMINOPHEN 500 MG TAB PO SCH (06:00)
[2019-05-18] MEDS ORDERED: METOCLOPRAMIDE HCL 10 MG TABLET PO SCH (06:00)
[2019-05-18] MEDS ORDERED: CeleBREX 200 MG CAP PO SCH (06:00)
[2019-05-18] MEDS ORDERED: CEFAZOLIN 2000MG 2,000 MG/15 ML SYR IV SCH (06:00)
[2019-05-18] MEDS ORDERED: ONDANSETRON INJ 2 MG/ML 2 ML VIAL ONE (06:25)
[2019-05-18] MEDS ORDERED: PROPOFOL IV EMULSION 10 MG/ML 20 ML VIAL IV ONE (06:25)
[2019-05-18] MEDS ORDERED: MIDAZOLAM HCL 1 MG/ML 2ML VIAL ONE ×2 (06:25→07:32)
[2019-05-18] MEDS ORDERED: LIDOCAINE HCL 2% 2 ML VIAL/AMP(20MG/ML) INFIL ONE (06:25)
[2019-05-18] MEDS ORDERED: fentaNYL citrate 100 MCG/2 ML VIAL ONE (06:25)
[2019-05-18] MEDS ORDERED: ROPIVACAINE 0.5% 5 MG/ML 30 ML VIAL ONE (06:28)
[2019-05-18] MEDS ORDERED: BUPIVACAINE 0.5 % 5 MG/1 ML PF 10ML VIAL ONE (06:28)
[2019-05-18] MEDS ORDERED: TRANEXAMIC ACID 1,000 MG **IV Intra-op IV SCH (06:30)
[2019-05-18] MEDS ORDERED: BUPIVACAINE 0.25% 30 ML VIAL ONE (06:31)
[2019-05-18] MEDS ORDERED: BACITRACIN INJ 50,000 UNIT VIAL ONE (06:33)
[2019-05-18] MEDS ORDERED: ORTHO JOINT ANESTHETIC ONE (06:33)
[2019-05-18] MEDS ORDERED: ATROPINE SULFATE 0.1 MG/ML 10ML SYR IV PRN (06:58)
[2019-05-18] MEDS ORDERED: ONDANSETRON INJ 2 MG/ML 2 ML VIAL IV PRN ×2 (06:58→11:01)
[2019-05-18] MEDS ORDERED: ePHEDrine sulfate 50 MG/ML AMP IV PRN (06:58)
[2019-05-18] MEDS ORDERED: fentaNYL citrate 100 MCG/2 ML VIAL IV PRN (06:58)
--- NOTE | 2019-05-18 07:03 | History & Physical Bridge Note ---
Date of Service May 18, 2019 History & Physical Bridge Note I have examined the patient, reviewed the History & Physical and in the interval since the performance of the History & Physical I have noted the following changes of clinical significance: no changes noted
[2019-05-18] MEDS ORDERED: KETAMINE HCL INJ 50 MG/ML 10 ML VIAL ONE (07:25)
--- NOTE | 2019-05-18 08:44 | Post Operative Brief Note ---
Immediate Post Op Note v1 Date of Surgery May 18, 2019 Pre & Post Diagnosis Operation Date: 05/18/19 07:00 Pre-Op Diagnosis: Right knee end-stage osteoarthritis Post-Op Diagnosis: Right knee end-stage osteoarthritis Procedure Operation Date: 05/18/19 07:00 Actual Procedures p Right Total Knee Arthroplasty(Right) - Meir Packer MD Surgeon Meir Packer MD Instructional Supervisor Can THAPA Estimated Blood Loss 5 Findings Consistent with Post-Op Diagnosis Specimens Bone cuts Drains Hemovac Drain (dual) Anesthesia Type MAC Spinal Regional Complications none Disposition Accompanied Patient To Recovery: No Disposition: Recovery Room Overlapping Procedure I was present for: the critical portions of procedure.
--- NOTE | 2019-05-18 09:52 | XRay Report ---
XR knee RT 2V routine HISTORY: 59 years-old Female Surgical Post Op right knee total joint arthroplasty. History of degene rative joint disease COMPARISON: None available TECHNIQUE: 2 views of the right knee FINDINGS: Right knee total joint arthroplasty and patella resurfacing demonstrates satisfactory alignment witho ut acute fracture or retained foreign body. Anterior midline skin kailash are noted along with expect ed postsurgical soft tissue swelling and deep tissue air with surgical drainage catheter. IMPRESSION: Right knee total joint arthroplasty and patella resurfacing demonstrates satisfactory ali gnment. The above report was generated using voice recognition software. It may contain grammatical, syntax o r spelling errors. Electronically signed by: Teerso Mcfarlane M.D. 05/18/2019 9:51 AM
--- NOTE | 2019-05-18 10:58 | Anesthesiology Progress Note ---
Date of Service May 18, 2019 Anesthesia Post Procedure Vital Signs Vital Signs: Temp Pulse Pulse Resp BP Pulse Ox 05/18/19 10:30 71 16 106/73 97 05/18/19 10:20 57 L 15 109/71 94 05/18/19 10:10 36.3 C L 59 L 16 102/69 96 05/18/19 10:00 36.3 C L 59 L 17 132/67 95 05/18/19 09:50 36.3 C L 62 14 117/85 99 05/18/19 09:40 36.3 C L 77 20 126/75 97 05/18/19 09:30 36.3 C L 69 18 130/83 98 05/18/19 09:20 36.3 C L 85 19 127/69 100 05/18/19 09:11 36.3 C L 96 H 12 111/66 96 05/18/19 05:44 36.9 C 65 20 138/86 98 Transfer of Care Handoff Completed per policy Notes Mental Status: alert / awake / arousable and participated in evaluation Nausea / Vomiting: adequately controlled Pain: adequately controlled Airway Patency, RR, SpO2: stable & adequate BP & HR: stable & adequate Hydration State: stable & adequate Neuraxial Anesthesia: was administered and sensory block is resolving Anesthetic Complications: no major complications apparent and Pt Satisfied with anesthetic care
[2019-05-18] MEDS ORDERED: HYDROmorphone INJ 0.5 MG/0.5 ML SYR IV PRN (11:01)
[2019-05-18] MEDS ORDERED: MAGNESIUM HYDROXIDE SUSP 30 ML UDC PO PRN (11:01)
[2019-05-18] MEDS ORDERED: NALOXONE HCL 0.4 MG/1 ML VIAL/CARP IV PRN (11:01)
[2019-05-18] MEDS ORDERED: BISACODYL 10 MG SUPP PR PRN (11:01)
[2019-05-18] MEDS ORDERED: COUGH DROP (SUGAR FREE) LOZ 24 LOZ/1 BOX BUCCAL PRN (11:18)
[2019-05-18] MEDS: SODIUM CHLORIDE 0.9% 1000ML 1,000 ML IV SCH ×2 (11:30→20:26)
--- NOTE | 2019-05-18 12:23 | Hospitalist Consultation ---
Date of Consultation May 18, 2019 Assessment & Plan (1) Status post total right knee replacement: - POD#[address] Packer - activity and wound care orders as per ortho - pain control with bowel regimen - PT/OT - monitor H/H for acute blood loss anemia and transfuse blood products PRN - EBL 5 mL (2) HTN (hypertension): -BP controlled, continue lisinopril -Monitor renal functions (3) HLD (hyperlipidemia): -Continue statin (4) History of cornea transplant: -Continue steroid drops (5) DVT prophylaxis: -Aspirin 81 mg twice daily as per orthopedics Thank you for this consultation. We will follow the patient with you during their hospital stay. You [facility] a [facility] via pager @ [phone]. Supervising Physician Co-Signing Physician Notes I saw this patient with the Nurse Practitioner, I participated in the history, physical, review of systems, and physical exam. I reviewed the medications with the patient and the Nurse Practioner and helped reconcile the medications. I helped take a detailed family and social history as well. I formulated the assessment and plan personally with the Nurse Practitioner went over it with the patient. Resume Post Op Care per Surgery Protocol Incentive Spirometry 10x per Hour Resume Relative Home Meds Where Appropriate PT/OT with appropriate fall precautions Transition from IV to PO Pain control DVT Prophylaxis Per Surgery Protocol Monitor Daily Labs ROS-No Headache, No Visual Changes, No Nausea, No Vomiting, No Fever, No Chills, No Neck Pain or Stiffness, No Chest Pain, No Palpitations, No SOB, No HARO, No C ough, No Sputum, No Wheezing, No Abdominal Pain, No Diarrhea, No Hematemesis, No Hemoptysis, No Unexpected Weight Loss, No Flank pain, No Melena, No Hematochezia, No Frequency, No Urgency, No Burning, No Hematuria, No Rashes, No Diaphoresis. Appetite is Normal, Sore R Knee Physical Exam Gen-AAO x 3, NAD, Afebrile, Obese Head-NCAT, EOMI, PERRLA, Anicteric Sclera, No Posterior Pharyngeal Erythema Neck-Supple, No JVD, No Thyromegaly, No Masses, No LAD, No Bruits Lungs-Clear to Auscultation Bilaterally, No Rales, No Rhonchi, No Wheezing, No Crepitus Chest-No S4, +S1, +S2, No S3, No Murmurs, No Rubs, No Gallops, No Ectopy Abdomen-Soft, Bowel Sounds Present, Non Tender, Non Distended, No Hepatomegaly, No Splenomegaly, No Palpable Masses, No Rebound, No Rigidity, No Guarding Musculoskeletal-No CVAT Extremities-No Cyanosis, No Clubbing, No Edema Nuero-Cranial Nerves II-XII grossly intact, Motor WNL, DTRs WNL, Strength WNL, Non Focal Psych-Normal Mood History of Present Illness Reason for Consultation: Postop medical management Requesting Physician: Dr. Packer Attending Physician: Dr. Jenkins History of Present Illness 59-year-old female who is status post right TKA today by Dr. Packer. Postoperatively patient is doing well. She reports her pain is well controlled. She still has some residual numbness to the lower extremities from surgery. She denies chest pain or shortness of breath. No abdominal pain or nausea. She denies lightheadedness and dizziness. She has not voided since surgery. Allergies Allergy/AdvReac Type Severity Reaction Status Date / Time tony G-F 20 Allergy Unknown SEVERE Verified 05/18/19 05:41 SWELLING Home Medications Home Medications Medication Instructions Recorded Confirmed Type famotidine-Ca carb-mag hydrox 1 tab PO DAILY PRN 03/18/19 05/18/19 History [Pepcid Complete] ibuprofen [Advil] 800 mg PO UD PRN 03/18/19 05/18/19 History lisinopril 10 mg PO QAM 03/18/19 05/18/19 History menthol [Ricola] 1.1 mg PO UD PRN 03/18/19 05/18/19 History prednisolone acetate 1 drp OPHTHALMIC (EYE) DAILY 03/18/19 05/18/19 History simvastatin 10 mg PO HS 03/18/19 05/18/19 History Patient History Medical History HTN (hypertension) (Chronic) HLD (hyperlipidemia) (Chronic) Osteoarthritis (Chronic) Surgical History History of cornea transplant (Chronic) History of cataract surgery (Chronic) Status post total left knee replacement (Chronic) Family History Mother Heart disease Social History Preferred Language: Omani Communication Ability: Effective Casino Manager Required: No Beliefs That Will Affect Care: None Current Living Situation: Spouse Other Information That Helps Us Care for You: No Feels Safe at Home: Yes Smoking Status: Former smoker Tobacco Type: cigarettes Do You Dip or Chew Tobacco: No Smoking End Date: QUIT 1996 Hx Alcohol Use: Yes Alcohol type: hard liquor Hx Substance Use: No Review of Systems Review of Systems: ROS per HPI, all other systems reviewed and negative Physical Exam Constitutional: WD/WN, vitals as above Eyes: PERRL, conjunctivae normal, anicteric sclerae ENMT: external ear and nose normal, oropharynx normal Respiratory: normal respiratory effort; no respiratory distress Auscultation: + diminished lung sounds (Bilateral bases) Cardiovascular: Rate/Rhythm: regular rate and regular rhythm Vessels: normal peripheral pulses Extremities: no edema Gastrointestinal (Abdomen): normal bowel sounds, soft, nontender, no hepatosplenomegaly Musculoskeletal: S/P right knee surgery, surgical dressing dry and intact, drain in place draining bloody drainage, still has some residual numbness/weakness from anesthesia Skin: no rashes, warm and dry Neurologic: PERRL, EOMI, accommodation nl, no face palsy, no dysarthria Psychiatric: A+Ox3, euthymic affect Results & Data Vital Signs (Past 12 Hours) Vital Signs Temp Pulse Pulse Resp BP Pulse Ox 05/18/19 11:51 36.6 C 63 18 116/71 97 05/18/19 11:20 36.5 C 61 18 122/75 97 05/18/19 10:30 71 16 106/73 97 05/18/19 10:20 57 L 15 109/71 94 05/18/19 10:10 36.3 C L 59 L 16 102/69 96 05/18/19 10:00 36.3 C L 59 L 17 132/67 95 05/18/19 09:50 36.3 C L 62 14 117/85 99 05/18/19 09:40 36.3 C L 77 20 126/75 97 05/18/19 09:30 36.3 C L 69 18 130/83 98 05/18/19 09:20 36.3 C L 85 19 127/69 100 05/18/19 09:11 36.3 C L 96 H 12 111/66 96 05/18/19 05:44 36.9 C 65 20 138/86 98
[2019-05-18] MEDS: ACETAMINOPHEN 500 MG TAB PO SCH ×2 (13:43→20:23)
[2019-05-18] MEDS: CEFAZOLIN 2000MG 2,000 MG/15 ML SYR IV SCH ×2 (16:22→22:16)
[2019-05-18] MEDS: SIMVASTATIN 10 MG TAB PO SCH (20:22)
[2019-05-18] MEDS: SENNA 8.6 MG TAB PO SCH (20:23)
[2019-05-18] MEDS: DOCUSATE SODIUM 100 MG CAP PO SCH (20:23)
[2019-05-18] MEDS: CeleBREX 200 MG CAP PO SCH (20:23)
[2019-05-18] MEDS: ASPIRIN 81 MG ECTAB PO SCH (20:23)
--- NOTE | 2019-05-18 20:25 | Operative Report ---
Post Operative Report Pre & Post Diagnosis Operation Date: 05/18/19 07:00 Pre-Op Diagnosis: Right knee end-stage osteoarthritis Post-Op Diagnosis: Right knee end-stage osteoarthritis Procedure Operation Date: 05/18/19 07:00 Actual Procedures p Right Total Knee Arthroplasty(Right) - Meir Packer MD Surgeon Meir Packer MD Labor Delivery Specialist Can THAPA Estimated Blood Loss 5 Findings Consistent with Post-Op Diagnosis Specimens Bone cuts Drains 2 Hemovac Anesthesia Type MAC Spinal Regional Disposition Accompanied Patient To Recovery: No Disposition: Recovery Room Indications 59-year-old female with severe osteoarthritis of the right knee with a varus knee [id number] with bone loss in the medial compartment and patellofemoral osteoarthritis. Patient has chronic pain and instability. Patient has successful left knee replacement. Description of Procedure The patient was taken to the operating room and anesthetized under spinal MAC regional. Patient was placed supine on the the operating table. A pneumatic tourniquet was placed about the right upper thigh. The knee exam demonstrated positive Otoniel exam no pseudolaxity medially a tight varus knee, slight flexion contracture further flexion 120 degrees. The involved leg was elevated exsanguinated with Esmarch bandage and the pneumatic tourniquet was raised to 325 millimeters mercury. A longitudinal incision was made across the anterior knee. Skin flaps were elevated. An incision was made into the medial retinaculum and extended up into the mid third of the quadriceps tendon and extended down to the tibial tubercle. Intra-articular findings demonstrated tricompartmental DJD chronic ACL tear [id number] medial compartment with bone loss tibia. The knee was exposed by excising cruciate ligaments and menisci. The infrapatellar fat pad was resected. The fat pad over the anterior femur at the upper aspect of the articular surface was resected for placement of the com ponent in that area. A subperiosteal peel lateral release was performed around the patella The [employer] journey 2.0 total knee arthroplasty system was utilized for the procedure. The custom femoral cutting guide was pinned in position. The distal femoral cut was made. The size 5, 5 in 1 cutting block was placed. The anterior posterior and chamfer cuts were made. The knee was extended and a free hand cut technique was performed to the patella. The patella with was measured and the width was reproduced using a 32 patella component. 3 drill holes are made for the patella component pegs. The tibia was then subluxed. The custom tibial cutting block was pinned in position and the proximal tibial cut was made with the oscillating saw. The size 3 tibial trial was externally rotated in line with the tibial tubercle and pinned in position. The punch for the stem was used. The femoral trial was inserted and centered the notch cutting devices were used and the collet was placed. Tibial trials were used for the insert. The size 12 trial gave balanced ligaments through full range of motion. Patella tracking was assessed with range of motion. The patella tracked centrally. The trials were removed. The Orthomix anesthetic cocktail was injected per protocol. The cut bone surfaces and soft tissue were copiously irrigated with antibiotic solution with bacitracin. The final components were cemented with Simplex cement. The final components were Le[employer] journey 2.05 right femoral component, 3 tibial baseplate, 12 mm posterior stabilized tibial polyethylene insert, 32 symmetrical patella.. While the cement cured the Betadine soak was used per protocol. When the cement cured the knee was copiously irrigated with pulsatile lavage antibiotic solution with bacitracin. 2 drains were brought out laterally connected to Hemovac. The quadriceps tendon and medial retinaculum were closed with interrupted [id number] #1 Vicryl sutures. The knee was taken through full range of motion and repair was secure. The subcutaneous tissues were closed with 2-0 Vicryl sutures. The skin was closed with kailash. A sterile dressing was applied. The tourniquet was let down and the patient had good capillary refill to the extremity. The patient tolerated the procedure well. My physician assistant manager pt Can THAPA assisted in the procedure including prepping draping leg positioning soft tissue retraction instrument management and assisted in the closure ,dressings application and will participate in postoperative care the patient. I attest to the content of the Intraoperative Record and any orders documented therein. Any exceptions are noted below.
[2019-05-18] MEDS: FAMOTIDINE 20 MG TAB PO PRN (22:16)
[2019-05-18] MEDS: OXYCODONE HCL IR 5 MG TAB (IMMEDIATE RELEASE) PO PRN (22:16)
[2019-05-19 05:44] LABS: Hemoglobin 12.3 g/dL (12.0-16.0); Mean Corpuscular Hgb Conc 32.4 g/dL (32-36); Mean Corpuscular Volume 89.6 fL (80-100); Mean Platelet Volume 9.9 fL (7.4-10.4); Platelet Count 284 K/uL (130-400); RDW Coefficient of Variation 14.8 % (11.5-14.5); RDW Standard Deviation 48.3 fL (36.4-46.3); Red Blood Count 4.24 M/uL (4.2-5.4); White Blood Count 19.25 K/uL (4.8-10.8)
[2019-05-19] MEDS: ACETAMINOPHEN 500 MG TAB PO SCH ×3 (06:08→21:25)
[2019-05-19 06:14] LABS: BUN Creatinine Ratio 20.4 (10-20); Calcium 8.2 mg/dl (8.5-10.1); Creatinine Clr Calc Pharmacy 113.4 ml/min; Est GFR (African American) 115.5; Est GFR (Non-African American) 99.6; Potassium 3.9 mmol/L (3.5-5.1)
--- NOTE | 2019-05-19 08:00 | Orthopedic Progress Note ---
Date of Service May 19, 2019 Assessment & Plan (1) Osteoarthritis of right knee: Leukocytosis - asymptomatic; likely due to surgical stress, preop steroids POD 1 R TKA PT/OT; WBAT DVT prophylaxis - ASA,SCD's,MAISHA's Pain management as written DC planning - Pt planning for OPPT up dc Subjective POD 1 s/p R TKA Sitting up in bed this AM. No complaints. Awake,alert. Pain controlled. Denies SOB,CP,LH. Physical Exam Physical Exam: Dressings C/D/I. Calves soft,NT. NV intact. Toes mobile. HV drainage 40ml's latest shift. Results & Data Vital Signs (Past 12 Hours) Vital Signs Temp Pulse Resp BP Pulse Ox 05/19/19 07:01 36.5 C 62 16 107/66 95 05/19/19 03:20 36.5 C 59 L 18 113/69 93 05/18/19 23:45 36.6 C 66 18 124/70 94 Laboratory Results Laboratory Results WBC 19.25 K/uL (4.8-10.8) H 05/19/19 05:14 RBC 4.24 M/uL (4.2-5.4) 05/19/19 05:14 Hgb 12.3 g/dL (12.0-16.0) 05/19/19 05:14 Hct 38.0 % (37-47) 05/19/19 05:14 MCV 89.6 fL (80-100) 05/19/19 05:14 MCH 29.0 pg (25-34) 05/19/19 05:14 MCHC 32.4 g/dL (32-36) 05/19/19 05:14 RDW Std Deviation 48.3 fL (36.4-46.3) H 05/19/19 05:14 RDW Coeff of [place] 14.8 % (11.5-14.5) H 05/19/19 05:14 Plt Count 284 K/uL (130-400) 05/19/19 05:14 MPV 9.9 fL (7.4-10.4) 05/19/19 05:14 Immature Gran % (Auto) 0.4 % 03/22/19 10:19 Neut % (Auto) 60.3 % 03/22/19 10:19 Lymph % (Auto) 28.2 % 03/22/19 10:19 [place] % (Auto) 7.8 % 03/22/19 10:19 Eos % (Auto) 3.1 % 03/22/19 10:19 Baso % (Auto) 0.2 % 03/22/19 10:19 Immature Gran # (Auto) 0.04 K/uL (0.00-0.02) H 03/22/19 10:19 Neut # (Auto) 5.64 K/uL (1.4-6.5) 03/22/19 10:19 Lymph # (Auto) 2.64 K/uL (1.2-3.4) 03/22/19 10:19 [place] # (Auto) 0.73 K/uL (0.11-0.59) H 03/22/19 10:19 Eos # (Auto) 0.29 K/uL (0-0.5) 03/22/19 10:19 Baso # (Auto) 0.02 K/uL (0-0.2) 03/22/19 10:19 PT 9.5 Seconds (9.0-12.0) 03/22/19 10:19 INR 0.9 (0.9-1.1) 03/22/19 10:19 APTT 24.9 Seconds (21.0-31.0) 03/22/19 10:19 PTT Ratio 0.9 03/22/19 10:19 Sodium 140 mmol/L (136-145) 05/19/19 05:14 Potassium 3.9 mmol/L (3.5-5.1) 05/19/19 05:14 Chloride 110 mmol/L (98-107) H 05/19/19 05:14 Carbon Dioxide 24 mmol/L (21-32) 05/19/19 05:14 Anion Gap 6.0 (3-11) 05/19/19 05:14 BUN 12 mg/dl (7-18) 05/19/19 05:14 Creatinine 0.59 mg/dl (0.6-1.2) L 05/19/19 05:14 Est Cr Clr Drug Dosing 113.4 ml/min 05/19/19 05:14 Est GFR ( Amer) 115.5 05/19/19 05:14 Est GFR (Non-Af Amer) 99.6 05/19/19 05:14 BUN/Creatinine Ratio 20.4 (10-20) H 05/19/19 05:14 Glucose 136 mg/dl (70-99) H 05/19/19 05:14 Estimat Average Glucose 123 mg/dl 03/22/19 10:19 Hemoglobin A1c 5.9 % (4.5-5.6) H 03/22/19 10:19 Calcium 8.2 mg/dl (8.5-10.1) L 05/19/19 05:14 Albumin 3.4 gm/dl (3.4-5.0) 03/22/19 10:19 Urine Color Yellow 03/22/19 Unknown Urine Appearance Clear (Clear) 03/22/19 Unknown Urine pH 5.5 (4.5-7.5) 03/22/19 Unknown Ur Specific [place] 1.020 (1.000-1.030) 03/22/19 Unknown Urine Protein Negative (Negative) 03/22/19 Unknown Urine Glucose (UA) Negative (Negative) 03/22/19 Unknown Urine Ketones Negative (Negative) 03/22/19 Unknown Urine Blood Negative (Negative) 03/22/19 Unknown Urine Nitrite Negative (Negative) 03/22/19 Unknown Urine Bilirubin Negative (Negative) 03/22/19 Unknown Urine Urobilinogen Negative (Negative) 03/22/19 Unknown Ur Leukocyte Esterase Negative (Negative) 03/22/19 Unknown Blood Type A Positive 03/22/19 10:19 Antibody Screen NEGATIVE 03/22/19 10:19
[2019-05-19] MEDS: OXYCODONE HCL IR 5 MG TAB (IMMEDIATE RELEASE) PO PRN ×4 (08:32→21:30)
[2019-05-19] MEDS: DOCUSATE SODIUM 100 MG CAP PO SCH ×2 (08:33→21:25)
[2019-05-19] MEDS: CeleBREX 200 MG CAP PO SCH ×2 (08:33→21:24)
[2019-05-19] MEDS: MULTIVITAMIN TAB PO SCH (08:33)
[2019-05-19] MEDS: ASPIRIN 81 MG ECTAB PO SCH ×2 (08:33→21:25)
[2019-05-19] MEDS: prednisoLONE acetate 1% OP SUSP 5 ML BTL OPL SCH (08:34)
[2019-05-19] MEDS: LISINOPRIL 10 MG TAB PO SCH (08:36)
--- NOTE | 2019-05-19 16:02 | Hospitalist Progress Note ---
Date of Service May 19, 2019 Assessment & Plan (1) Status post total right knee replacement: - POD#[address] Packer - WBC up to 19.25, no fever, chills. Monitor WBC trend - activity and wound care orders as per ortho - pain control with bowel regimen - PT/OT - H & H stable (2) HTN (hypertension): -BP controlled, continue lisinopril -Monitor (3) HLD (hyperlipidemia): -Continue statin (4) History of cornea transplant: -Continue steroid drops (5) DVT prophylaxis: -Aspirin 81 mg twice daily as per orthopedics Disposition Medical mx in progress We will follow the patient with you during their hospital stay. You can reach a member of the [facility] Hospitalist Team 18/05 via pager @ [phone]. Subjective POD 1 s/p R TKA Pain in tolerable with pain medications. No fever, chills, nausea, vomiting, chest pain. Physical Exam Physical Exam: GENERAL- AAOX3, No acute distress LUNGS- Air entry bilaterally equal. No rales, rhonchi, crackles, wheezes heard. HEART- Regular rate and rhythm. No murmurs ABDOMEN- Soft, non tender, non distended, Bowel sounds heard. EXTREMITIES- S/P Right knee replacement = drain + NEUROMUSCULAR- AAOX3, Grossly no focal deficits Results & Data Vital Signs (Past 12 Hours) Vital Signs Temp Pulse Pulse Resp BP Pulse Ox 05/19/19 15:06 36.7 C 68 17 106/66 96 05/19/19 11:57 36.6 C 69 16 121/77 97 05/19/19 07:01 36.5 C 62 16 107/66 95
[2019-05-19] MEDS: SENNA 8.6 MG TAB PO SCH (21:25)
[2019-05-19] MEDS: SIMVASTATIN 10 MG TAB PO SCH (21:25)
[2019-05-19] MEDS: FAMOTIDINE 20 MG TAB PO PRN (21:25)
[2019-05-20] MEDS: OXYCODONE HCL IR 5 MG TAB (IMMEDIATE RELEASE) PO PRN ×2 (05:31→10:20)
[2019-05-20] MEDS: ACETAMINOPHEN 500 MG TAB PO SCH (05:31)
[2019-05-20 06:29] LABS: Hematocrit (blood only) 34.9 % (37-47); Mean Corpuscular Hgb Conc 31.5 g/dL (32-36); Mean Corpuscular Volume 90.6 fL (80-100); Mean Platelet Volume 9.7 fL (7.4-10.4); Platelet Count 283 K/uL (130-400); RDW Coefficient of Variation 15.1 % (11.5-14.5); RDW Standard Deviation 50.1 fL (36.4-46.3); Red Blood Count 3.85 M/uL (4.2-5.4); White Blood Count 11.58 K/uL (4.8-10.8)
[2019-05-20 07:04] LABS: BUN Creatinine Ratio 22.7 (10-20); Calcium 8.2 mg/dl (8.5-10.1); Creatinine Clr Calc Pharmacy 113.4 ml/min; Est GFR (African American) 115.5; Est GFR (Non-African American) 99.6; Potassium 3.9 mmol/L (3.5-5.1)
--- NOTE | 2019-05-20 07:24 | Orthopedic Progress Note ---
Date of Service May 20, 2019 Assessment & Plan (1) Osteoarthritis of right knee: Leukocytosis - asymptomatic; likely due to surgical stress, preop steroids POD 2 R TKA PT/OT; WBAT DVT prophylaxis - ASA,SCD's,MAISHA's Pain management as written DC planning - Pt planning for OPPT today. Subjective POD 2 s/p R TKA Pain in tolerable with pain medications. No fever, chills, nausea, vomiting, chest pain. Did well in PT. Physical Exam Physical Exam: Right knee silverlon dressing c/d/i, no drainage, toes/ ankle mobile, no calf tenderness, A&Ox3. Results & Data Vital Signs (Past 12 Hours) Vital Signs Temp Pulse Resp BP Pulse Ox 05/19/19 23:15 36.7 C 64 14 108/64 96
[2019-05-20] MEDS: prednisoLONE acetate 1% OP SUSP 5 ML BTL OPL SCH (07:43)
[2019-05-20] MEDS: LISINOPRIL 10 MG TAB PO SCH (07:43)
[2019-05-20] MEDS: CeleBREX 200 MG CAP PO SCH (07:43)
[2019-05-20] MEDS: DOCUSATE SODIUM 100 MG CAP PO SCH (07:44)
[2019-05-20] MEDS: MULTIVITAMIN TAB PO SCH (07:44)
[2019-05-20] MEDS: ASPIRIN 81 MG ECTAB PO SCH (07:44)
--- NOTE | 2019-05-20 11:02 | Hospitalist Progress Note ---
Date of Service May 20, 2019 Assessment & Plan (1) Status post total right knee replacement: - POD#[address] Packer - WBC trending down to 11k from 19k, likely stress reaction. No fever, chills. - activity and wound care orders as per ortho - pain control with bowel regimen - PT/OT (2) Acute blood loss anemia: -HB dropped to 11 from pre op HB of 14.2 on 03/22/19 -Post operative status -Non indication of transfusion -Monitor outpatient (3) HTN (hypertension): -BP controlled, continue lisinopril -Monitor (4) HLD (hyperlipidemia): -Continue statin (5) History of cornea transplant: -Continue steroid drops (6) DVT prophylaxis: -Aspirin 81 mg twice daily as per orthopedics Disposition Per ortho= plan is to discharge home today Subjective Pain in tolerable with pain medications. No fever, chills, nausea, vomiting, chest pain. Did well in PT. Physical Exam Physical Exam: GENERAL- AAOX3, No acute distress LUNGS- Air entry bilaterally equal. No rales, rhonchi, crackles, wheezes heard. HEART- Regular rate and rhythm. No murmurs ABDOMEN- Soft, non tender, non distended, Bowel sounds heard. EXTREMITIES- S/P Right knee replacement = drain + NEUROMUSCULAR- AAOX3, Grossly no focal deficits Results & Data Vital Signs (Past 12 Hours) Vital Signs Temp Pulse Pulse Pulse Resp BP Pulse Ox 05/20/19 10:42 36.6 C 63 69 64 12 120/70 99 05/20/19 07:59 36.6 C 63 12 120/70 99 05/19/19 23:15 36.7 C 64 14 108/64 96
--- NOTE | 2019-06-01 19:50 | Discharge Summary ---
HISTORY OF PRESENT ILLNESS: This is a 59-year-old female patient of Dr. Packer's complaining of chronic right knee pain and instability, longstanding, now progressively getting worse. The patient failed conservative treatment and elected to proceed with a right total knee arthroplasty. PAST MEDICAL HISTORY: Peripheral neuropathy, rheumatoid arthritis, osteoarthritis, sciatica, and acid reflux. POSTOPERATIVE COURSE: The patient underwent a right total knee arthroplasty on 05/18/2019. She was followed closely with medical consultation, pain management, physical therapy and DVT prophylaxis in the form of aspirin. The patient did well postoperatively and was discharged home on postoperative day #2. PHYSICAL EXAMINATION: Right knee Silverlon dressing was clean, dry and intact. There was no redness or drainage. She had no calf tenderness. Negative Homans sign. Neurologically and neurovascularly she is intact. Toes and ankle were mobile. DIAGNOSES: Status post right total knee arthroplasty with a history of peripheral neuropathy, rheumatoid arthritis, osteoarthritis, sciatica and acid reflux. PLAN: The patient was discharged home with outpatient physical therapy. The patient will continue her preadmission medications with the addition of pain medication and aspirin twice daily for DVT prophylaxis. She will follow up with Dr. Packer as scheduled as an outpatient.
== END 2019-05-20 11:32 | disposition home or self-care (01) ==
LOC: 3E 05:04 → ASU 05:04